=== PATIENT | female | born 1945 | race Caucasian/White ===

== ENCOUNTER 2016-09-16 14:26 | Emergency (ER) | payer MEDICARE, OTHER ==
[~2016-09-16 14:26] MED LIST: CLARITIN10 MG PO; LEVOTHROID100 MCG PO; MUCINEX1200 MG/BO PO
[2016-09-16] MEDS ORDERED: DICLOFENAC SODI75 M2 PO (14:45)
[2016-09-16] MEDS ORDERED: TYLENOL WITH C1 EACH PO (14:45)
[2016-09-16] MEDS ORDERED: SYNTHROID112 MC1 PO (14:46)
[2016-09-16] MEDS ORDERED: TIZANIDINE HCL2 M2 PO (14:46)
[2016-09-16] MEDS ORDERED: IBUPROFEN600 M1 PO (15:21)
[2016-09-16] MEDS ORDERED: TRAMADOL HCL50 M2 PO (15:21)
== END 2016-09-16 15:50 ==
LOC: EDMED 14:26
DX: M54.16 Radiculopathy, lumbar region (principal); E03.9 Hypothyroidism, unspecified; Z79.890 Hormone replacement therapy